=== PATIENT | female | born 1950 ===

== ENCOUNTER 2025-01-20 05:30 | Day surgery (SDC) | payer MEDICARE ==
[~2025-01-20 05:30] MED LIST: Dextrose 5%-0.45% NaCl 1,000 ML IV SCH
[2025-01-20] MEDS ORDERED: Lidocaine 2% 20 ML MDV ONE (05:57)
[2025-01-20] MEDS ORDERED: Propofol 200 MG/20 ML SDV ONE (05:57)
[2025-01-20] MEDS: Lactated Ringers 1,000 ML IV SCH (06:03)
== END 2025-01-20 08:27 | disposition home or self-care (01) ==
LOC: DL.ENDO 05:30
PROVIDERS: ATTEND Internal Medicine Gastroenterology
DX: Z12.11 Encounter for screening for malignant neoplasm of colon (principal); D12.0 Benign neoplasm of cecum; K57.30 Diverticulosis of large intestine without perforation or abscess without bleeding; K64.4 Residual hemorrhoidal skin tags; I10 Essential (primary) hypertension; E78.00 Pure hypercholesterolemia, unspecified
CPT/HCPCS: 45385; 88305; J7120